=== PATIENT | female | born 1995 | race Caucasian/White ===

== ENCOUNTER 2016-12-21 18:25 | Emergency (ER) | payer SELFPAY ==
[~2016-12-21] VITALS: Ht 172.7 cm; Wt 120.1 kg
[~2016-12-21 18:25] MED LIST: DOXY1TAB3 PO; PNV1TAB.5 PO
[2016-12-21] MEDS ORDERED: KETOROLAC 30 MG/1 ML ONE (18:39)
[2016-12-21] MEDS ORDERED: DIAZEPAM 5 MG TABLET ONE (18:49)
[2016-12-21] MEDS ORDERED: KETOROLAC 30 MG/1 ML IM ONE (19:00)
[2016-12-21] MEDS ORDERED: DIAZEPAM 5 MG TABLET PO ONE (19:00)
[2016-12-21 19:46] VITALS: BP 110/56
== END 2016-12-21 19:49 | disposition home or self-care (01) ==
LOC: ED 19:43
DX: S16.1XXA Strain of muscle, fascia and tendon at neck level, initial encounter (principal); G44.219 Episodic tension-type headache, not intractable; Z87.891 Personal history of nicotine dependence; V89.2XXA Person injured in unspecified motor-vehicle accident, traffic, initial encounter; Y93.89 Activity, other specified; Y92.89 Other specified places as the place of occurrence of the external cause; Y99.8 Other external cause status
CPT/HCPCS: 96372; 99283; J1885

== ENCOUNTER 2018-08-01 15:38 | Outpatient (CLI) | payer OTHER ==
[2018-08-01] MEDS ORDERED: IBUP200C8 PO (16:01)
== END 2018-08-01 23:59 | disposition home or self-care (01) ==
LOC: STAR 15:38
PROVIDERS: ATTEND Surgery
DX: Z02.9 Encounter for administrative examinations, unspecified (principal)

== ENCOUNTER 2018-08-05 06:55 | Day surgery (SDC) | payer OTHER ==
[2018-08-01 15:49] VITALS: BP 114/75
[~2018-08-05] VITALS: Ht 172.7 cm; Wt 104.0 kg
[~2018-08-05 06:55] MED LIST changes: +BUPIVACAINE/PF-EPI 0.5% 1:200K ONE; +IBUP200C8 PO; +LIDOCAINE 1%-EPI 1:100K, 30ML ONE
[2018-08-05] MEDS ORDERED: LACTATED RINGERS 1,000 ML IV SCH (07:06)
[2018-08-05] MEDS ORDERED: LIDOCAINE-MPF 1%, 2ML ONE (07:08)
[2018-08-05] MEDS ORDERED: FENTANYL PF 100 MCG/2ML ONE ×2 (07:10→09:01)
[2018-08-05 07:11] VITALS: BP 114/75
[2018-08-05 07:16] LABS: HCG UR SG 1.031 (1.003-1.030)
[2018-08-05] MEDS ORDERED: METOPROLOL 1 MG/ML, 5ML IV PRN (07:30)
[2018-08-05] MEDS ORDERED: ACETAMINOPHEN 500 MG TABLET PO ONE (07:30)
[2018-08-05] MEDS ORDERED: hydrALAzine 20 MG/ML, 1ML IV PRN (07:30)
[2018-08-05] MEDS ORDERED: OXYcodone 5 MG/5 ML ORAL.SOL UDC PO PRN (07:30)
[2018-08-05] MEDS ORDERED: GABAPENTIN 300 MG CAPSULE PO ONE (07:30)
[2018-08-05] MEDS ORDERED: HYDROmorphone 2 MG/ML, 1ML IVPush PRN (07:30)
[2018-08-05] MEDS ORDERED: PROCHLORPERAZINE 5 MG/ML, 2ML IV PRN (07:30)
[2018-08-05] MEDS ORDERED: HALOPERIDOL 5 MG/ML IV PRN (07:30)
[2018-08-05] MEDS ORDERED: LABETALOL 5MG/ML, 20ML IV PRN (07:30)
[2018-08-05] MEDS ORDERED: LIDOCAINE-MPF 1%, 2ML INFIL ONE (07:30)
[2018-08-05] MEDS ORDERED: MEPERIDINE/PF 25MG/0.5ML IVPush PRN (07:30)
[2018-08-05] MEDS ORDERED: DIPHENHYDRAMINE 50 MG/ML, 1ML IVPush PRN (07:30)
[2018-08-05] MEDS ORDERED: PROMETHAZINE 25 MG/ML, 1ML IV PRN (07:30)
[2018-08-05] MEDS ORDERED: MIDAZOLAM 1 MG/ML, 2ML ONE (07:34)
[2018-08-05] MEDS ORDERED: PROPOFOL 10 MG/ML, 20ML ONE (07:43)
[2018-08-05] MEDS ORDERED: KETOROLAC 30 MG/1 ML ONE (07:43)
[2018-08-05] MEDS ORDERED: CEFAZOLIN 1,000 MG ONE (07:43)
[2018-08-05] MEDS ORDERED: SUCCINYLCHOLINE 20 MG/ML, 10ML ONE (07:43)
[2018-08-05] MEDS ORDERED: ROCURONIUM 10 MG/ML,10ML ONE (07:43)
[2018-08-05] MEDS ORDERED: ONDANSETRON 2MG/ML, 2ML ONE (07:43)
[2018-08-05] MEDS ORDERED: DEXAMETHASONE 4 MG/ML, 1ML ONE (07:43)
[2018-08-05] MEDS ORDERED: OXYcodone 5 MG/5 ML ORAL.SOL UDC ONE (09:01)
[2018-08-05] MEDS: FENTANYL PF 100 MCG/2ML IV PRN ×2 (09:02→09:09)
[2018-08-05] MEDS ORDERED: DIAZEPAM 5 MG TABLET PO ONE (10:30)
== END 2018-08-05 11:40 | disposition home or self-care (01) ==
LOC: OUT 06:55
PROVIDERS: ATTEND Surgery
DX: R59.1 Generalized enlarged lymph nodes (principal); E04.9 Nontoxic goiter, unspecified; F17.210 Nicotine dependence, cigarettes, uncomplicated; E66.9 Obesity, unspecified; Z68.35 Body mass index [BMI] 35.0-35.9, adult; Z98.890 Other specified postprocedural states; Z72.89 Other problems related to lifestyle; Z88.0 Allergy status to penicillin
CPT/HCPCS: 38510; 81025; 88305; C1760; J0330; J0690; J1100; J1885; J2250; J2405; J2704; J3010; J7120; J3490